=== PATIENT | male | born 1955 | race Caucasian/White ===

== ENCOUNTER 2017-06-22 13:34 | Emergency (ER) | payer BC ==
[~2017-06-22] VITALS: Ht 180.3 cm; Wt 96.3 kg
[2017-06-22 14:02] LABS: BASOPHILS % (AUTO) 0.3 % (0-1); EOSINOPHILS # (AUTO) 0.1 X10'3 (0-0.9); EOSINOPHILS % (AUTO) 2.2 % (0-6); HEMATOCRIT 39.5 % (42.0-52.0); HEMOGLOBIN 13.7 g/dl (14.0-17.9); LYMPHOCYTES # (AUTO) 1.4 X10'3 (1.1-4.8); LYMPHOCYTES % (AUTO) 21.8 % (21-51); MEAN CORPUSCULAR HEMOGLOBIN 34.9 PG (27.0-31.0); MEAN CORPUSCULAR HGB CONC 34.7 % (33.0-36.5); MEAN CORPUSCULAR VOLUME 100.7 FL (78-98); MEAN PLATELET VOLUME 7.2 FL (7.4-10.4); MONOCYTES # (AUTO) 0.6 X10'3 (0-0.9); MONOCYTES % (AUTO) 9.5 % (2-12); NEUTROPHILS # (AUTO) 4.2 X10'3 (1.8-7.7); NEUTROPHILS % (AUTO) 66.2 % (42-75); PLATELET COUNT 306 X10'3 (140-440); RED BLOOD COUNT 3.92 X10'6 (4.70-6.10); RED CELL DISTRIBUTION WIDTH 15.2 % (11.5-14.5); WHITE BLOOD COUNT 6.3 X10'3 (4.5-11.0)
[2017-06-22 14:12] LABS: INR 0.9 INR; PARTIAL THROMBOPLASTIN TIME 27 SECONDS (22-32); PROTHROMBIN TIME 9.8 SECONDS (9.0-12.0)
[2017-06-22 14:16] LABS: ALANINE AMINOTRANSFERASE 34 U/L (12-78); ALBUMIN 4.4 G/DL (3.4-5.0); ALBUMIN/GLOBULIN RATIO 1.3 (1.1-1.5); ALKALINE PHOSPHATASE 45 IU/L (46-116); ANION GAP 13 (8-16); ASPARTATE AMINO TRANSFERASE 25 U/L (10-37); BILIRUBIN,TOTAL 0.5 MG/DL (0.1-1.0); BLOOD UREA NITROGEN 17 MG/DL (7-18); BUN/CREATININE RATIO 22.7 (5.4-32.0); CHLORIDE 102 MMOL/L (99-107); CREATININE 0.75 MG/DL (0.60-1.10); GLUCOSE 102 MG/DL (70-104); POTASSIUM 3.7 MMOL/L (3.5-5.1); SODIUM 141 MMOL/L (135-145); TOTAL CARBON DIOXIDE 25.6 MMOL/L (24-32); TOTAL PROTEIN 7.9 G/DL (6.4-8.2); eGFR > 90 ML/MIN
[2017-06-22 17:10] VITALS: BP 167/101
== END 2017-06-22 18:28 | disposition home or self-care (01) ==
LOC: ER 13:35
DX: R55 Syncope and collapse (principal); R42 Dizziness and giddiness; G89.29 Other chronic pain; Z88.0 Allergy status to penicillin
CPT/HCPCS: 36415; 71045; 80053; 82948; 84484; 85025; 85610; 85730; 93005; 99285

== ENCOUNTER 2020-05-26 14:33 | Inpatient (IN) | payer BC ==
[~2020-05-26] VITALS: Ht 180.3 cm; Wt 92.4 kg
--- NOTE | 2020-05-26 14:56 | NUR ---
PATIENT TO CT. Addendum: 05/26/20 at 1457 by JAN INCORRECT PATIENT.
--- NOTE | 2020-05-26 15:01 | NUR ---
STEPHAN YOUNG AT BEDSIDE.
[2020-05-26] MEDS ORDERED: normal saline 1000ML IV soln IV ONE (15:15)
[2020-05-26 15:26] LABS: LYMPHOCYTES # (AUTO) 0.9 X10'3 (1.1-4.8); MEAN PLATELET VOLUME 6.9 FL (7.4-10.4); MONOCYTES # (AUTO) 1.3 X10'3 (0-0.9); NEUTROPHILS % (AUTO) 88.7 % (42-75)
[2020-05-26 15:27] LABS: BASOPHILS % (AUTO) 0.2 % (0-1); EOSINOPHILS % (AUTO) 0 % (0-6); HEMATOCRIT 42.9 % (42.0-52.0); HEMOGLOBIN 14.6 g/dl (14.0-17.9); LYMPHOCYTES % (AUTO) 4.6 % (21-51); MEAN CORPUSCULAR HEMOGLOBIN 33.8 PG (27.0-31.0); MEAN CORPUSCULAR HGB CONC 33.9 g/dL (33.0-36.5); MEAN CORPUSCULAR VOLUME 99.6 FL (78-98); MONOCYTES % (AUTO) 6.5 % (2-12); NEUTROPHILS # (AUTO) 17.4 X10'3 (1.8-7.7); PLATELET COUNT 594 X10'3 (140-440); RED BLOOD COUNT 4.31 X10'6 (4.70-6.10); RED CELL DISTRIBUTION WIDTH 13.6 % (11.5-14.5); WHITE BLOOD COUNT 19.6 X10'3 (4.5-11.0)
[2020-05-26 15:39] LABS: ALANINE AMINOTRANSFERASE 26 U/L (12-78); ALBUMIN/GLOBULIN RATIO 0.6 (1.1-1.5); ALKALINE PHOSPHATASE 101 IU/L (46-116); ANION GAP 17 (8-16); ASPARTATE AMINO TRANSFERASE 12 U/L (10-37); BILIRUBIN,TOTAL 0.3 MG/DL (0.1-1.0); BLOOD UREA NITROGEN 108 MG/DL (7-18); BUN/CREATININE RATIO 26.8 (5.4-32.0); CALCIUM 9.4 MG/DL (8.5-10.1); CHLORIDE 95 MMOL/L (99-107); CREATININE 4.03 MG/DL (0.60-1.10); GLUCOSE 136 MG/DL (70-104); MAGNESIUM 1.7 MG/DL (1.5-2.4); POTASSIUM 4.2 MMOL/L (3.5-5.1); SODIUM 129 MMOL/L (135-145); TOTAL CARBON DIOXIDE 16.7 MMOL/L (24-32); TOTAL PROTEIN 8.1 G/DL (6.4-8.2); eGFR 15 ML/MIN
[2020-05-26 16:14] LABS: BURR CELLS FEW; PLATELET ESTIMATE INCREASED; SCHISTOCYTES FEW; TOTAL CELLS COUNTED 100
[2020-05-26 16:52] LABS: LIPASE 513 U/L (73-393)
[2020-05-26] MEDS ORDERED: metroNIDAZOLE-Flagyl 500mg/NS 100 ML IV STA (17:01)
[2020-05-26] MEDS ORDERED: acetaminophen 325mg tablet PO PRN ×2 (17:40)
[2020-05-26] MEDS ORDERED: ondansetron/PF 4mg/2ml inj IV PRN (17:40)
[2020-05-26] MEDS ORDERED: morphine 2 MG/ML inj. syringe IV PRN ×2 (17:40)
[2020-05-26] MEDS ORDERED: magnesium hydroxide 30ml (MOM) UD suspension PO PRN (17:40)
[2020-05-26] MEDS ORDERED: mag hydrox/Alum hydrox/simeth 30ml oral suspension PO PRN (17:40)
[2020-05-26] MEDS ORDERED: LISI20TA28 PO (17:47)
[2020-05-26] MEDS ORDERED: OMEP-50 PO (17:47)
[2020-05-26] MEDS: normal saline 1000ml 1,000 ML IV SCH (18:16)
[2020-05-26] MEDS: levoFLOXACIN-Levaquin 250mg/D5 50 ML IV SCH (18:16)
[2020-05-26 19:49] LABS: CLARITY,URINE SLIGHTLY CLOUDY (Clear); COLOR,URINE YELLOW (Yellow); GLUCOSE, URINE NEGATIVE (Neg); KETONES,URINE NEGATIVE (Neg); LEUKOCYTE ESTERASE ,URINE NEGATIVE (Neg); NITRITES, URINE NEGATIVE (Neg); OCCULT BLOOD,URINE NEGATIVE (Neg); PH,URINE 5.5 (4.8-8.0); PROTEIN,URINE NEGATIVE (Neg); UROBILINOGEN,URINE 0.2 E.U/dL (0.2-1.0)
[2020-05-26 19:51] LABS: UA COLLECTION TYPE VOIDED
[2020-05-26 19:54] LABS: SODIUM,URINE RANDOM < 15 MEQ/L
[2020-05-26 19:59] LABS: BACTERIA,URINE NONE SEEN /HPF (Neg); RBC,URINE 0-2 /HPF (0-2); SQUAMOUS EPITHELIAL CELL,UR FEW /LPF (FEW)
[2020-05-26 20:00] LABS: AMORPHOUS URATES 1+; CELLULAR CAST 0-4 /LPF (NEGATIVE); HYALINE CASTS 0-3 /LPF (NEGATIVE); MUCUS STRANDS FEW /LPF (Neg); RENAL CELLS, URINE FEW /HPF
[2020-05-26 21:45] VITALS: BP_SYST 113; BP_SYST 114; BP_SYST 119; BP_DIAS 69; BP_DIAS 70; BP_DIAS 78
[2020-05-27] MEDS: metroNIDAZOLE-Flagyl 500mg/NS 100 ML IV SCH ×3 (00:10→16:38)
[2020-05-27] MEDS: normal saline 1000ml 1,000 ML IV SCH ×3 (04:37→23:40)
--- NOTE | 2020-05-27 06:20 | NUR ---
Problems reprioritized. Patient report given, questions answered & plan of care reviewed with ARCENIO. Addendum: 05/27/20 at 0622 by Jonatan Mora RN Amended: Links added.
[2020-05-27 07:29] VITALS: BP 94/56
[2020-05-27 07:35] LABS: BASOPHILS % (AUTO) 0.3 % (0-1); EOSINOPHILS % (AUTO) 0.2 % (0-6); HEMATOCRIT 37.1 % (42.0-52.0); HEMOGLOBIN 12.5 g/dl (14.0-17.9); LYMPHOCYTES # (AUTO) 0.9 X10'3 (1.1-4.8); LYMPHOCYTES % (AUTO) 6.4 % (21-51); MEAN CORPUSCULAR HEMOGLOBIN 33.6 PG (27.0-31.0); MEAN CORPUSCULAR HGB CONC 33.9 g/dL (33.0-36.5); MEAN CORPUSCULAR VOLUME 99.4 FL (78-98); MEAN PLATELET VOLUME 6.7 FL (7.4-10.4); NEUTROPHILS # (AUTO) 11.8 X10'3 (1.8-7.7); NEUTROPHILS % (AUTO) 86.1 % (42-75); PLATELET COUNT 522 X10'3 (140-440); RED BLOOD COUNT 3.73 X10'6 (4.70-6.10); RED CELL DISTRIBUTION WIDTH 13.4 % (11.5-14.5); WHITE BLOOD COUNT 13.7 X10'3 (4.5-11.0)
[2020-05-27 07:45] LABS: ALBUMIN 2.5 G/DL (3.4-5.0); ANION GAP 15 (8-16); BLOOD UREA NITROGEN 86 MG/DL (7-18); BUN/CREATININE RATIO 44.6 (5.4-32.0); CALCIUM 8.7 MG/DL (8.5-10.1); CHLORIDE 105 MMOL/L (99-107); CREATININE 1.93 MG/DL (0.60-1.10); GLUCOSE 100 MG/DL (70-104); POTASSIUM 3.9 MMOL/L (3.5-5.1); SODIUM 138 MMOL/L (135-145); TOTAL CARBON DIOXIDE 17.9 MMOL/L (24-32); eGFR 35 ML/MIN
[2020-05-27] MEDS: levoFLOXACIN-Levaquin 250mg/D5 50 ML IV SCH (09:53)
[2020-05-27] MEDS: HYDROcodone/acetaminophen 5mg/325mg tablet PO PRN ×2 (09:54→16:41)
[2020-05-27] MEDS ORDERED: FLU VACC QS2020-21(6MOS UP)/PF 60 MCG/0.5 ML SYRINGE IMVAC ONE (10:00)
--- NOTE | 2020-05-27 10:23 | NUR ---
While in room performing assessment, pt. states he was admitted with a low BP in the 80s and this morning he accidentally took his home medications. Medications in a personal hygiene pouch. Pt. had taken Lisinopril 20mg PO once this AM. Checked BP. 105/67, HR 57. Tooked home medications and sent to pharmacy to be held there. Re-educated pt. on not taking home medications. Notified charge entry. Will notify MD during rounds, but no ASE noted at this time. Will continue to monitor for the remainder of my shift.
[2020-05-27 11:09] LABS: C DIFFICILE TOXINS A&B NEGATIVE (Neg)
[2020-05-27 11:10] LABS: C DIFF ANTIGEN NEGATIVE (NEGATIVE); C DIFF SPECIMEN=DIARRHEA? ACCEPTABLE
[2020-05-27] MEDS: lisinopril 20mg tablet PO SCH (11:20)
--- NOTE | 2020-05-27 11:41 | NUR ---
MD AWARE PT. TOOK HOME BP MED THIS AM AND AWARE OF LOWER HR OF 57
[2020-05-27 12:15] VITALS: BP 120/61
--- NOTE | 2020-05-27 18:37 | NUR ---
Gave report to Crystal PORTER.
[2020-05-27 19:30] VITALS: BP_SYST 110; BP_SYST 117; BP_SYST 119; BP_DIAS 59; BP_DIAS 68
[2020-05-27] MEDS: lactobacillus rhamnosus 10,000 MMU CELLS/CAPSULE PO SCH (20:48)
[2020-05-27] MEDS: enoxaparin 40mg/0.4ml syringe SUBCUT SCH (20:50)
[2020-05-28] VITALS (8 sets, daily range): BP systolic 105–147; BP diastolic 59–91
[2020-05-28] MEDS: metroNIDAZOLE-Flagyl 500mg/NS 100 ML IV SCH ×4 (00:12→23:36)
[2020-05-28] MEDS: normal saline 1000ml 1,000 ML IV SCH (04:11)
[2020-05-28 06:21] LABS: BASOPHILS # (AUTO) 0.1 X10'3 (0-0.2); BASOPHILS % (AUTO) 0.6 % (0-1); EOSINOPHILS # (AUTO) 0.1 X10'3 (0-0.9); EOSINOPHILS % (AUTO) 0.6 % (0-6); HEMATOCRIT 35.9 % (42.0-52.0); HEMOGLOBIN 12.2 g/dl (14.0-17.9); LYMPHOCYTES # (AUTO) 1.4 X10'3 (1.1-4.8); LYMPHOCYTES % (AUTO) 15.4 % (21-51); MEAN CORPUSCULAR HEMOGLOBIN 34.1 PG (27.0-31.0); MEAN CORPUSCULAR VOLUME 100.4 FL (78-98); MEAN PLATELET VOLUME 6.6 FL (7.4-10.4); MONOCYTES % (AUTO) 11.7 % (2-12); NEUTROPHILS # (AUTO) 6.3 X10'3 (1.8-7.7); NEUTROPHILS % (AUTO) 71.7 % (42-75); PLATELET COUNT 469 X10'3 (140-440); RED BLOOD COUNT 3.58 X10'6 (4.70-6.10); RED CELL DISTRIBUTION WIDTH 13.6 % (11.5-14.5); WHITE BLOOD COUNT 8.8 X10'3 (4.5-11.0)
[2020-05-28 06:27] LABS: ALBUMIN 2.5 G/DL (3.4-5.0); ANION GAP 14 (8-16); BLOOD UREA NITROGEN 47 MG/DL (7-18); BUN/CREATININE RATIO 43.1 (5.4-32.0); CALCIUM 8.2 MG/DL (8.5-10.1); CHLORIDE 108 MMOL/L (99-107); CREATININE 1.09 MG/DL (0.60-1.10); GLUCOSE 103 MG/DL (70-104); SODIUM 140 MMOL/L (135-145); TOTAL CARBON DIOXIDE 17.7 MMOL/L (24-32); eGFR 68 ML/MIN
[2020-05-28] MEDS: pantoprazole 40mg Tablet.DR PO SCH (07:50)
[2020-05-28] MEDS: lactobacillus rhamnosus 10,000 MMU CELLS/CAPSULE PO SCH ×2 (07:51→20:50)
[2020-05-28] MEDS: lisinopril 20mg tablet PO SCH (08:00)
[2020-05-28] MEDS: levoFLOXACIN-Levaquin 250mg/D5 50 ML IV SCH (08:01)
[2020-05-28] MEDS: sodium bicarbonate (8.4%) inj. 100 MEQ in dextrose 5%-water 1,000 ML IV SCH ×2 (12:38→23:36)
--- NOTE | 2020-05-28 18:00 | NUR ---
Patient in room [facility]. I have received report from GERMAN Nunes and had the opportunity to ask questions and assume patient care.
--- NOTE | 2020-05-28 18:17 | NUR ---
Problems reprioritized. Patient report given by Christie FELIPE, questions answered & plan of care reviewed with Jeanne RN. I have reviewed and agree with all medications administered and interventions performed by Brown Soriano.
--- NOTE | 2020-05-28 19:03 | NUR ---
Patient in room [facility]. I have received report from ARCENIO PORTER and had the opportunity to ask questions and assume patient care.
[2020-05-28] MEDS: enoxaparin 40mg/0.4ml syringe SUBCUT SCH (20:51)
[2020-05-29] VITALS: BP 136/81
--- NOTE | 2020-05-29 06:11 | NUR ---
Student documentation: I have reviewed and agree with all interventions, assessments performed and documented by IDSHA (STUDENT).
--- NOTE | 2020-05-29 06:12 | NUR ---
Student Medication Administration: For this medication-pass time frame, all medication were reviewed, dispensed, administered and documented per hospital policy by DISHA (STUDENT).
--- NOTE | 2020-05-29 06:26 | NUR ---
Problems reprioritized. Patient report given, questions answered & plan of care reviewed with CAMPBELL RN.
--- NOTE | 2020-05-29 06:29 | NUR ---
Problems reprioritized. Patient report given, questions answered & plan of care reviewed with GERMAN Lino.
--- NOTE | 2020-05-29 06:30 | NUR ---
Patient in room [facility]. I have received report from Jeanne PORTER and had the opportunity to ask questions and assume patient care.
[2020-05-29 07:00] VITALS: BP 132/80
[2020-05-29] MEDS: lisinopril 20mg tablet PO SCH (08:45)
[2020-05-29] MEDS: pantoprazole 40mg Tablet.DR PO SCH (08:45)
[2020-05-29] MEDS: metroNIDAZOLE-Flagyl 500mg/NS 100 ML IV SCH (08:46)
[2020-05-29] MEDS: lactobacillus rhamnosus 10,000 MMU CELLS/CAPSULE PO SCH (08:46)
[2020-05-29 08:57] LABS: BASOPHILS % (AUTO) 0.8 % (0-1); EOSINOPHILS % (AUTO) 0.7 % (0-6); HEMATOCRIT 35.9 % (42.0-52.0); HEMOGLOBIN 11.9 g/dl (14.0-17.9); LYMPHOCYTES # (AUTO) 1.1 X10'3 (1.1-4.8); LYMPHOCYTES % (AUTO) 17.9 % (21-51); MEAN CORPUSCULAR HEMOGLOBIN 33.6 PG (27.0-31.0); MEAN CORPUSCULAR HGB CONC 33.2 g/dL (33.0-36.5); MEAN PLATELET VOLUME 6.2 FL (7.4-10.4); MONOCYTES # (AUTO) 0.6 X10'3 (0-0.9); MONOCYTES % (AUTO) 10.5 % (2-12); NEUTROPHILS # (AUTO) 4.2 X10'3 (1.8-7.7); NEUTROPHILS % (AUTO) 70.1 % (42-75); PLATELET COUNT 520 X10'3 (140-440); RED BLOOD COUNT 3.56 X10'6 (4.70-6.10); RED CELL DISTRIBUTION WIDTH 13.4 % (11.5-14.5)
[2020-05-29 09:43] LABS: ALBUMIN 2.6 G/DL (3.4-5.0); ANION GAP 11 (8-16); BLOOD UREA NITROGEN 21 MG/DL (7-18); BUN/CREATININE RATIO 22.6 (5.4-32.0); CALCIUM 8.3 MG/DL (8.5-10.1); CHLORIDE 110 MMOL/L (99-107); CREATININE 0.93 MG/DL (0.60-1.10); GLUCOSE 97 MG/DL (70-104); POTASSIUM 3.7 MMOL/L (3.5-5.1); SODIUM 147 MMOL/L (135-145); TOTAL CARBON DIOXIDE 26.4 MMOL/L (24-32); eGFR 82 ML/MIN
[2020-05-29] MEDS: sodium bicarbonate (8.4%) inj. 100 MEQ in dextrose 5%-water 1,000 ML IV SCH (10:00)
[2020-05-29] MEDS ORDERED: LEVO500T89 PO (10:21)
[2020-05-29] MEDS ORDERED: METR-159 PO (10:21)
[2020-05-29] MEDS: levoFLOXACIN-Levaquin 250mg/D5 50 ML IV SCH (10:52)
[2020-05-29 12:00] VITALS: BP 143/79
--- NOTE | 2020-05-29 13:41 | NUR ---
Patient left after discharge teaching was done verbally with patient. Patient was made familiar with new medications and how to take them. Patient expressed discharge teaching understanding. Patient family in the room during discharge. Patient IV taken out at the time of discharge, canula whole and intact upon inspection. IV site had minimal bleeding. Patient left walking out with student nurse.
== END 2020-05-29 14:10 | disposition home or self-care (01) | DRG 391 ==
LOC: ER 14:34 → ED HOLD 17:42 → SUR 3N 21:45
PROVIDERS: ADMIT Internal Medicine; ATTEND Internal Medicine
DX: K52.9 Noninfective gastroenteritis and colitis, unspecified (principal); N17.0 Acute kidney failure with tubular necrosis; E87.1 Hypo-osmolality and hyponatremia; E87.2 Acidosis; Z83.3 Family history of diabetes mellitus; I10 Essential (primary) hypertension; K21.9 Gastro-esophageal reflux disease without esophagitis; M54.9 Dorsalgia, unspecified; N28.9 Disorder of kidney and ureter, unspecified; Z88.0 Allergy status to penicillin; E86.0 Dehydration; Z88.8 Allergy status to other drugs, medicaments and biological substances
CPT/HCPCS: 36415; 74176; 80048; 80053; 81001; 82570; 83036; 83605; 83690; 83735; 83880; 84145; 84300; 85007; 85025; 85651; 87045; 87046; 87081; 87088; 87177; 87209; 87324; 87449; 93005; 96361; 96365; 99285; G0378; J1650; J1956; J3490; J7030

== ENCOUNTER 2024-09-09 08:09 | Emergency (ER) | payer MEDICARE, BC ==
[~2024-09-09] VITALS: Ht 177.8 cm; Wt 102.3 kg
[~2024-09-09 08:09] MED LIST: LISI20TA28 PO; OMEP20CA16 PO
[2024-09-09 08:11] VITALS: BP 153/69; PULSE 68; O2SAT 98
--- NOTE | 2024-09-09 09:32 | Physician Documentation ---
History of Present Illness ~ Chief Complaint: Back Pain Stated Complaint: BACK/LEG PAIN Time Seen by MD: 08:56 Primary Medical Doctor: GERMAIN MINOR 69-year-old male presents to the ED with a complaint sciatica and lumbar pain primarily on the left side for the last 15 days. Denies any specific injury or exacerbating factors, however he does state that he has been going to the gym regularly for two years and does exercises like rowing , crunches and various other exercises Some tingling in his left leg denies any saddle anesthesia or numbness. Day of Onset: Sep 09, 2024 Medication Reconciliation Allergies: Coded Allergies: Penicillins (Unverified Allergy, Intermediate, RASH, 09/09/24) Scheduled Lisinopril (Lisinopril), 1 TAB PO DAILY, (Reported) Omeprazole (Omeprazole), 1 CAP PO DAILY, (Reported) Past Medical History Past Medical History: Vertigo, Hypertension, GERD, Chronic Back Pain Past Surgical History: no surgical history Alcohol Use: Occasionally Drug Use: none Lives In: Home Occupation: employed Review of Systems All Other Systems at this time: Reviewed and Negative ROS As stated above in the HPI, otherwise all systems are reviewed and negative. Physical Exam Physical Exam Vital Signs: Temperature: 97.9, Source: Oral, Heart Rate: 68, Respiratory Rate: 18, BP: 153/69, Pulse Oximetry: 98, Weight: 102.270 Oxygen Flow Rate: 0 Physical Exam General: Alert, no apparent distress. . Neck: Full range of motion. back: Tender to lumbar region on the left side via palpation Extremities: Normal range of motion, no deformity. Neurologic: Oriented x4. reFlexes intact Psychiatric: Normal mood and affect. Skin: Normal color, warm and dry. No edema, no ecchymosis. Progress Results/Orders Results/Orders Completed Orders - GREGORIO SAVAGE NP Ketorolac Trometh 15mg/Ml Vial (Toradol (09/09/24 09:15) Gabapentin Capsule (Neurontin Capsule) (09/09/24 09:15) Vital Signs 09/09/24 08:11 Temp 97.9 Pulse 68 Resp 18 B/P (MAP) 153/69 Pulse Ox 98 O2 Flow Rate 0 Medical Decision Making Findings Highly suspecting about her strain and/or bulge vertebral disc.. I advised patient to obtain an MRI in the outpatient setting. Treated him pain and inflammation while in the ED He will benefit from evaluation by his primary care for medications and further evaliuation Did not present with any red flag symptoms Differential Dx:Considerations: Include: AAA, Aortic dissection, Appendicitis, Bowel obstruction, Cholelithiasis, Cholangitis, DJD, Fracture, Hepatitis, HNP, Musculoskeletal pain, Pancreatitis, Pyelonephritis, Renal infarction, Strain, Urinary obstruction, Urolithiasis, Urinary tract infection, Other Departure Disposition: HOME / SELF CARE / HOMELESS Impression: Primary Impression: Back problem Additional Impressions: Strain of lumbar region Sciatica Condition: Stable Discharge Instructions: Back Exercises, Lumbosacral Strain Referrals: NO PRIMARY CARE PROVIDER (PCP) Prescriptions Lidocaine (Lidoderm) 5 % Adh..patch 1 PATCH TOP DAILY for 30 Days, #10 PATCH 0 Refills may wear up to 12 hours Prov: GREGORIO SAVAGE NP 09/09/24 Cyclobenzaprine HCl (Cyclobenzaprine HCl) 10 Mg Tablet 1 TAB PO Q8H for muscle spasms for 10 Days, #30 TAB Prov: GREGORIO SAVAGE NP 09/09/24 Education Educated: Patient Educated regarding: diagnosis Signature Scribe Signature: f Attestation: Scribed for Gregorio Savage Clinical Quality Manager by Gregorio Wooten NP . 09/09/24 09:35 GREGORIO SAVAGE NP Sep 09, 2024 09:32
[2024-09-09] MEDS ORDERED: CYCL-394 PO (09:35)
[2024-09-09] MEDS ORDERED: LIDO-52 TOP (09:35)
[2024-09-09 09:40] VITALS: RESP 16
[2024-09-09] MEDS: ketorolac trometh 15mg/ml vial 15 MG/ML ML IM ONE (09:40)
[2024-09-09 09:59] VITALS: TEMP 97.9
== END 2024-09-09 10:00 | disposition home or self-care (01) ==
LOC: ER 08:10
DX: S39.012A Strain of muscle, fascia and tendon of lower back, initial encounter (principal); I10 Essential (primary) hypertension; Z88.0 Allergy status to penicillin; Z88.8 Allergy status to other drugs, medicaments and biological substances; X58.XXXA Exposure to other specified factors, initial encounter; Y93.89 Activity, other specified; Y92.89 Other specified places as the place of occurrence of the external cause; Y99.8 Other external cause status
CPT/HCPCS: 96372; 99283; J1885